=== PATIENT | female | born 1990 | race American Indian/Alaskan Native ===

== ENCOUNTER 2020-04-29 22:18 | Emergency (ER) | payer MEDICAID ==
[2020-04-29 23:31] VITALS: BP 116/76
--- NOTE | 2020-04-30 00:56 | XRay Report ---
CHEST PA AND LATERAL VIEWS INDICATION: chestpain. COMPARISON: None. FINDINGS: Support devices: None. Heart: Within normal limits. Lungs/Pleura: No acute pulmonary or pleural findings. IMPRESSION: 1. No acute findings. Signer Name: Andrew Jama MD Signed: 04/30/2020 12:52 AM Workstation Name: [id number]
--- NOTE | 2020-04-30 02:54 | Emergency Department Report ---
ED General Adult HPI - General Chief complaint: Chest Pain Stated complaint: CHEST PAIN,COUGH,FATIQUE Time Seen by Provider: 04/30/20 02:39 Source: patient Mode of arrival: Ambulatory Limitations: No Limitations - History of Present Illness Initial comments: The patient was evaluated in the emergency department for symptoms described in the history of present illness. He/she was evaluated in the context of the global COVID-19 pandemic, which necessitated consideration that the patient might be at risk for infection with the virus that causes COVID-19. Institutional protocols and algorithms that pertain to the evaluation of patients at risk for COVID-19 are in a state of rapid change based on information released by regulatory bodies including the CDC and federal and state organizations. These policies and algorithms were followed during the patient's care in the emergency department. Please note that these policies, procedures and recommendations changed on a rapid basis. 29-year-old -[place] female presents to the emergency room for intermittent chest pain and cough for 2 days. Patient also complains of nasal congestion runny nose fatigue. 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 Patient has not taken anything for her discomfort. Patient denies any recent travels, denies any control use and denies any cancers. Patient has taken nothing for her cough or nasal congestion. Patient denies any past medical history. Patient denies any fever or chills no nausea no vomiting no shortness of breath. Last menstrual period was 04/15/2020. Onset/Timin -: days(s) Location: chest Severity scale (0 -10): 8 Quality: sharp Consistency: intermittent Worsens with: movement Associated Symptoms: chest pain, cough. denies: diaphoresis, fever/chills, headaches, loss of appetite, malaise, nausea/vomiting, shortness of breath, weakness Treatments Prior to Arrival: none - Related Data Previous Rx's Medication Instructions Recorded Last Taken Type Benzonatate [Tessalon Perles] 100 mg PO Q8HR #15 capsule 04/30/20 Unknown Rx Ibuprofen [Motrin 600 MG tab] 600 mg PO Q8H PRN #21 tablet 04/30/20 Unknown Rx Allergies Allergy/AdvReac Type Severity Reaction Status Date / Time No Known Allergies Allergy Unverified 04/29/20 23:36 ED Review of Systems ROS: Stated complaint: CHEST PAIN,COUGH,FATIQUE Other details as noted in HPI Comment: All other systems reviewed and negative ED Past Medical Hx - Past Medical History Previous Medical History?: No - Surgical History Past Surgical History?: No - Social History Smoking Status: Current Every Day Smoker Substance Use Type: None - Medications Home Medications: Home Medications Medication Instructions Recorded Confirmed Last Taken Type Benzonatate [Tessalon Perles] 100 mg PO Q8HR #15 capsule 04/30/20 Unknown Rx Ibuprofen [Motrin 600 MG tab] 600 mg PO Q8H PRN #21 tablet 04/30/20 Unknown Rx ED Physical Exam - General Limitations: No Limitations General appearance: alert, in no apparent distress - Head Head exam: Present: atraumatic, normocephalic - Eye Eye exam: Present: normal appearance - ENT ENT exam: Present: normal exam, mucous membranes moist - Neck Neck exam: Present: normal inspection - Respiratory Respiratory exam: Present: normal lung sounds bilaterally. Absent: respiratory distress, chest wall tenderness, accessory muscle use - Cardiovascular Cardiovascular Exam: Present: regular rate, normal rhythm. Absent: systolic murmur, diastolic murmur, rubs, gallop - GI/Abdominal GI/Abdominal exam: Present: soft, normal bowel sounds - Extremities Exam Extremities exam: Present: normal inspection - Back Exam Back exam: Present: normal inspection - Neurological Exam Neurological exam: Present: alert, oriented X3 - Psychiatric Psychiatric exam: Present: normal affect, normal mood - Skin Skin exam: Present: warm, dry, intact, normal color. Absent: rash ED Course Vital Signs 04/29/20 23:11 Temperature 98.9 F Pulse Rate 103 H Respiratory 18 Rate Blood Pressure 116/76 O2 Sat by Pulse 99 Oximetry ED Medical Decision Making - Radiology Data Radiology results: report reviewed Referring Physician:ED DOCPatient Name:CARLOS ONOFREPatient ID:[id number] of :[id number]:FemaleAccession:[id number] Addy e:[id number] Status:Finalized Findings [facility] [address] [place] [address] XRay Report Signed Patient: CARLOS ONOFRE MR#: [id number] : 1990 Acct:[id number] Age/Sex: 29 / F ADM Date: 04/29/20 Loc: ED Attending Dr: Ordering Physician: ED DOC, MD Date of Service: 04/29/20 Procedure(s): XR chest routine 2V Accession Number(s): [id number] cc: ALFA VILLEDA MD Fluoro Time In Minutes: CHEST PA AND LATERAL VIEWS INDICATION: chestpain. COMPARISON: None. FINDINGS: Support devices: None. Heart: Within normal limits. Lungs/Pleura: No acute pulmonary or pleural findings. IMPRESSION: 1. No acute findings. Signer Name: Andrew Jama MD Signed: 04/30/2020 12:52 AM Workstation Name: [id number] - Medical Decision Making 29-year-old -[place] female presents to the emergency room for intermittent chest pain and cough for 2 days. Patient also complains of nasal congestion runny nose fatigue. 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 Patient has not taken anything for her discomfort. Patient denies any recent travels, denies any control use and denies any cancers. Patient has taken nothing for her cough or nasal congestion. Patient denies any past medical history. Patient denies any fever or chills no nausea no vomiting no shortness of breath. Last menstrual period was 04/15/2020. Chest x-ray is negative. Patient pulse ox at 99% heart rate is 95. Discussed with patient she can try taking rtcw-jex-yhgnedx Zyrtec's ibuprofen follow-up with her primary care provider if no improvement to return back to the emergency room for any worsening issues. Critical care attestation.: If time is entered above; I have spent that time in minutes in the direct care of this critically ill patient, excluding procedure time. ED Disposition Clinical Impression: Atypical chest pain, Cough Disposition: DC-01 TO HOME OR SELFCARE Is pt being admited?: No Does the pt Need Aspirin: No Condition: Stable Instructions: Chest Pain (ED), Nonspecific Chest Pain, Adult, Cough, Adult, [id number] Additional Instructions: Your symptoms appear most consistent with a nonspecific viral syndrome. However, given this current pandemic, COVID-19 is in the differential of possibilities. Despite your previous negative COVID-19 test, I do recommend repeat outpatient Covid 19 testing. In the meantime, isolate/quarantine yourself and stay away from anyone who is elderly, immunocompromised or chronically ill. You can use ibuprofen every 6-8 hours and Tylenol every 4-8 hours, using the dosing on the back of the bottle, as needed for any fever or body aches. Return to the emergency department with any worsening of your symptoms, development of chest pain or shortness of breath, or with any acute distress. Try taking aipm-euv-conduwl Zyrtec's. Take the Tessalon Perles for cough. Ibuprofen and to follow-up with your primary care provider if his symptoms persist. Symptoms worsen return back to the emergency room for reevaluation. Prescriptions: Ibuprofen [Motrin 600 MG tab] 600 mg PO Q8H PRN #21 tablet PRN Reason: Pain Benzonatate [Tessalon Perles] 100 mg PO Q8HR #15 capsule Referrals: PRIMARY CARE, [Primary Care Provider] - 3-5 Days WILMER CORTÉS MD [Staff Physician] - 3-5 Days AVERY JOSEPH FNP [Referring] - 3-5 Days Forms: Work/School Release Form(ED)
== END 2020-04-30 04:00 | disposition home or self-care (01) ==
LOC: ED 22:18
DX: R07.89 Other chest pain (principal); R05 Cough; R09.81 Nasal congestion; F17.200 Nicotine dependence, unspecified, uncomplicated; Z79.1 Long term (current) use of non-steroidal anti-inflammatories (NSAID); Z79.899 Other long term (current) drug therapy
CPT/HCPCS: 71046; 93005

== ENCOUNTER 2020-12-31 02:38 | Emergency (ER) | payer SELFPAY | END 2020-12-31 05:15 | disposition left against medical advice (07) | LOC: ED 02:38 | DX: H57.12 Ocular pain, left eye (principal); Z53.21 Procedure and treatment not carried out due to patient leaving prior to being seen by health care provider ==

== ENCOUNTER 2021-07-07 07:47 | Emergency (ER) | payer MEDICAID ==
[2021-07-07] MEDS ORDERED: SODIUM CHLORIDE 0.9% 1000 ML 1,000 ML IV ONE (08:24)
--- NOTE | 2021-07-07 08:28 | Emergency Department Report ---
ED Chest Pain HPI - General Chief Complaint: Chest Pain Stated Complaint: CHEST PAIN Time Seen by Provider: 07/07/21 08:13 Source: patient Mode of arrival: Ambulatory Limitations: No Limitations - History of Present Illness Initial Comments: 31-year-old -[place] female presents to the emergency department from home with a complaint of midsternal chest pain with radiation to the left shoulder, palpitations that feel like her heart is racing, and some intermittent shortness of breath. This began last night around 11 PM while the patient was t rying to sleep. Symptoms appear worse when she is laying flat. No past medical history. She is a tobacco smoker but denies any illicit drug use or alcohol abuse. No family history of early heart attack. No recent travel or sick contacts at home. She has not taken anything for her symptoms prior to presentation today. Severity scale (0 -10): 10 - Related Data Previous Rx's Medication Instructions Recorded Last Taken Type Benzonatate [Tessalon Perles] 100 mg PO Q8HR #15 capsule 04/30/20 Unknown Rx Ibuprofen [Motrin 600 MG tab] 600 mg PO Q8H PRN #21 tablet 04/30/20 Unknown Rx Allergies Allergy/AdvReac Type Severity Reaction Status Date / Time No Known Allergies Allergy Unverified 04/29/20 23:36 Heart Score - HEART Score History: Slightly suspicious EKG: Normal Age: < 45 Risk factors: 1-2 risk factors Troponin: < normal limit HEART Score: 1 - EKG Read Time Time EKG Completed: 07:58 EKG Read Time: 08:02 ED Review of Systems ROS: Stated complaint: CHEST PAIN Other details as noted in HPI Comment: All other systems reviewed and negative Constitutional: denies: chills, fever Eyes: denies: eye pain, vision change ENT: denies: ear pain, throat pain Respiratory: shortness of breath. denies: cough Cardiovascular: chest pain, palpitations. denies: edema Gastrointestinal: denies: abdominal pain, vomiting Genitourinary: denies: dysuria, discharge Musculoskeletal: denies: back pain, arthralgia Skin: denies: rash, lesions Neurological: denies: headache, weakness ED Past Medical Hx - Past Medical History Previous Medical History?: No - Surgical History Past Surgical History?: No - Social History Smoking Status: Current Every Day Smoker Substance Use Type: Alcohol, Marijuana - Medications Home Medications: Home Medications Medication Instructions Recorded Confirmed Last Taken Type Benzonatate [Tessalon Perles] 100 mg PO Q8HR #15 capsule 04/30/20 Unknown Rx Ibuprofen [Motrin 600 MG tab] 600 mg PO Q8H PRN #21 tablet 04/30/20 Unknown Rx ED Physical Exam - General Limitations: No Limitations - Other Other exam information: GENERAL: The patient is well-developed well-nourished. HENT: Normocephalic. Atraumatic. Patient has moist mucous membranes. EYES: Extraocular motions are intact. NECK: Supple. Trachea is midline. CHEST/LUNGS: Clear to auscultation. No tachypnea or accessory muscle use. HEART/CARDIOVASCULAR: Regular. There is mild to moderate tachycardia. There is no murmur. ABDOMEN: Abdomen is soft, nontender. Patient has normal bowel sounds. There is no abdominal distention. SKIN: Skin is warm and dry. NEURO: The patient is awake, alert, and oriented. The patient is cooperative. The patient has no focal neurologic deficits. Normal speech. MUSCULOSKELETAL: There is no tenderness or deformity. There is no limitation range of motion. ED Course Vital Signs 07/07/21 07/07/21 07/07/21 08:06 09:18 09:19 Temperature 99 F Pulse Rate 123 H 110 H Respiratory 22 14 Rate Blood Pressure 150/88 Blood Pressure 150/88 134/85 [Right] O2 Sat by Pulse 100 100 100 Oximetry 07/07/21 07/07/21 07/07/21 09:21 09:35 09:45 Temperature Pulse Rate 113 H 108 H 111 H Respiratory 9 L 8 L 12 Rate Blood Pressure 134/85 132/87 132/87 Blood Pressure [Right] O2 Sat by Pulse 100 98 98 Oximetry 07/07/21 07/07/21 07/07/21 10:01 10:15 10:31 Temperature Pulse Rate 112 H 105 H 106 H Respiratory 14 11 L 14 Rate Blood Pressure 132/86 132/86 132/86 Blood Pressure [Right] O2 Sat by Pulse 99 100 Oximetry 07/07/21 07/07/21 07/07/21 10:45 11:01 11:15 Temperature Pulse Rate 105 H 88 84 Respiratory 11 L 14 14 Rate Blood Pressure 132/86 116/77 116/77 Blood Pressure [Right] O2 Sat by Pulse 99 96 97 Oximetry 07/07/21 07/07/21 07/07/21 11:31 11:45 12:01 Temperature Pulse Rate 84 84 79 Respiratory 15 15 11 L Rate Blood Pressure 116/77 116/77 116/77 Blood Pressure [Right] O2 Sat by Pulse 97 99 98 Oximetry 07/07/21 07/07/21 07/07/21 12:15 12:31 12:44 Temperature Pulse Rate 95 H 81 97 H Respiratory 12 15 15 Rate Blood Pressure 116/77 116/77 Blood Pressure 110/81 [Right] O2 Sat by Pulse 97 97 98 Oximetry GABO score - Gabo Score Age > 65: (0) No Aspirin use within the Past 7 Days: (0) No 3 or more CAD Risk Factors: (0) No 2 or more Angina events in past 24 hrs: (0) No Known CAD with more than 50% Stenosis: (0) No Elevated Cardiac Markers: (0) No ST Deviation Greater than 0.5mm: (0) No GABO Score: 0 ED Medical Decision Making - Lab Data Result diagrams: 07/07/21 08:29 07/07/21 08:29 Lab Results 07/07/21 07/07/21 07/07/21 Range/Units 08:29 08:29 08:29 WBC 5.1 (4.5-11.0) K/mm3 RBC 3.86 (3.65-5.03) M/mm3 Hgb 12.5 (10.1-14.3) gm/dl Hct 37.2 (30.3-42.9) % MCV 96 (79-97) fl MCH 32 (28-32) pg MCHC 34 (30-34) % RDW 12.6 L (13.2-15.2) % Plt Count 263 (140-440) K/mm3 Lymph % (Auto) 14.4 (13.4-35.0) % [place] % (Auto) 6.4 (0.0-7.3) % Eos % (Auto) 0.1 (0.0-4.3) % Baso % (Auto) 0.5 (0.0-1.8) % Lymph # (Auto) 0.7 L (1.2-5.4) K/mm3 [place] # (Auto) 0.3 (0.0-0.8) K/mm3 Eos # (Auto) 0.0 (0.0-0.4) K/mm3 Baso # (Auto) 0.0 (0.0-0.1) K/mm3 Seg Neutrophils % 78.6 H (40.0-70.0) % Seg Neutrophils # 4.0 (1.8-7.7) K/mm3 D-Dimer 219.70 (0-234) ng/mlDDU Sodium 132 L (137-145) mmol/L Potassium 3.7 (3.6-5.0) mmol/L Chloride 98.6 (98-107) mmol/L Carbon Dioxide 21 L (22-30) mmol/L Anion Gap 16 mmol/L BUN 9 (7-17) mg/dL Creatinine 0.7 (0.6-1.2) mg/dL Estimated GFR > 60 ml/min BUN/Creatinine Ratio 13 % Glucose 130 H (65-100) mg/dL Calcium 9.5 (8.4-10.2) mg/dL Total Bilirubin 0.30 (0.1-1.2) mg/dL AST 21 (5-40) units/L ALT 16 (7-56) units/L Alkaline Phosphatase 65 (35-129) units/L Troponin T < 0.010 (0.00-0.029) ng/mL Total Protein 7.9 (6.3-8.2) g/dL Albumin 4.7 (3.9-5) g/dL Albumin/Globulin Ratio 1.5 % HCG, Qual (Negative) 07/07/21 07/07/21 Range/Units 08:29 11:06 WBC (4.5-11.0) K/mm3 RBC (3.65-5.03) M/mm3 Hgb (10.1-14.3) gm/dl Hct (30.3-42.9) % MCV (79-97) fl MCH (28-32) pg MCHC (30-34) % RDW (13.2-15.2) % Plt Count (140-440) K/mm3 Lymph % (Auto) (13.4-35.0) % [place] % (Auto) (0.0-7.3) % Eos % (Auto) (0.0-4.3) % Baso % (Auto) (0.0-1.8) % Lymph # (Auto) (1.2-5.4) K/mm3 [place] # (Auto) (0.0-0.8) K/mm3 Eos # (Auto) (0.0-0.4) K/mm3 Baso # (Auto) (0.0-0.1) K/mm3 Seg Neutrophils % (40.0-70.0) % Seg Neutrophils # (1.8-7.7) K/mm3 D-Dimer (0-234) ng/mlDDU Sodium (137-145) mmol/L Potassium (3.6-5.0) mmol/L Chloride (98-107) mmol/L Carbon Dioxide (22-30) mmol/L Anion Gap mmol/L BUN (7-17) mg/dL Creatinine (0.6-1.2) mg/dL Estimated GFR ml/min BUN/Creatinine Ratio % Glucose (65-100) mg/dL Calcium (8.4-10.2) mg/dL Total Bilirubin (0.1-1.2) mg/dL AST (5-40) units/L ALT (7-56) units/L Alkaline Phosphatase (35-129) units/L Troponin T < 0.010 (0.00-0.029) ng/mL Total Protein (6.3-8.2) g/dL Albumin (3.9-5) g/dL Albumin/Globulin Ratio % HCG, Qual Negative (Negative) - EKG Data -: EKG Interpreted by Wy EKG shows normal: sinus rhythm, axis, intervals, QRS complexes (Septal Q waves), ST-T waves Rate: tachycardia (125 bpm) - EKG Data When compared to previous EKG there are: no significant change Interpretation: unchanged when compared t (04/29/20) - Radiology Data Radiology results: image reviewed interpreted by me: Chest x-ray does not show any acute process. There are no pleural effusions, obvious pneumonia and there is no pneumothorax. No widened mediastinum. - Medical Decision Making This patient presents to the emergency department with a complaint of some chest pain with radiation to the left arm and intermittent shortness of breath that started last night. EKG does not show any morphology consistent with ST elevation NC and is unchanged from previous. Chest x-ray does not show any pneumonia, pleural effusions, pneumothorax, widened mediastinum, or any other acute process. The patient's labs have been unremarkable including CBC, metabolic panel, n egative D-dimer, negative troponins x2. During one of my reevaluation's, the patient admitted that she used cocaine last night and does so intermittently. Her vital signs have been reassuring other than some tachycardia that has since resolved with IV fluid resuscitation. She has been reevaluated multiple times over multiple hours, is greatly improved, and appears safe for discharge home at this time. She is low on the heart and GABO score. Her contact information has been sent over to the [place] [facility], and someone from their office should be contacting her shortly for close outpatient follow-up as part of our [facility] low as chest pain protocol. Critical Care Time: No Critical care attestation.: If time is entered above; I have spent that time in minutes in the direct care of this critically ill patient, excluding procedure time. ED Disposition Clinical Impression: Atypical chest pain Disposition: 01 HOME / SELF CARE / HOMELESS Is pt being admited?: No Condition: Stable Instructions: Nonspecific Chest Pain, Adult Additional Instructions: Please avoid any further cocaine or any other illicit drug use. Please try to avoid any excessive amount of caffeine. Make sure you stay hydrated. Follow-up with a primary care physician in the next few days. I am sending your contact information over to the [place], and someone from their office should be contacting you shortly for close outpatient follow-up. Just in case, I am giving you a referral for one of their hand spring repairer helper, Dr. Keenan. Return to the emergency department with any worsening of your symptoms, new or concerning symptoms not addressed during this current emergency department visit, or with any acute distress. Referrals: SHAYAN CORTEZ MD [Primary Care Provider] - 3-5 Days AMERICO KEENAN MD [Staff Physician] - 3-5 Days Time of Disposition: 12:14
[2021-07-07 09:04] LABS: Basophils % (Auto) 0.5 % (0.0-1.8); Eosinophils % (Auto) 0.1 % (0.0-4.3); Hematocrit 37.2 % (30.3-42.9); Hemoglobin 12.5 gm/dl (10.1-14.3); Lymphocytes # (Auto) 0.7 K/mm3 (1.2-5.4); Lymphocytes % (Auto) 14.4 % (13.4-35.0); Mean Corpuscular HGB Conc 34 % (30-34); Mean Corpuscular Volume 96 fl (79-97); Monocytes # (Auto) 0.3 K/mm3 (0.0-0.8); Monocytes % (Auto) 6.4 % (0.0-7.3); Platelet Count 263 K/mm3 (140-440); Red Blood Count 3.86 M/mm3 (3.65-5.03); Red Cell Distribution Width 12.6 % (13.2-15.2)
[2021-07-07 09:12] LABS: Alanine Aminotransferase 16 units/L (7-56); Albumin 4.7 g/dL (3.9-5); Blood Urea Nitrogen 9 mg/dL (7-17); Calcium 9.5 mg/dL (8.4-10.2); Hemolysis Index 9
[2021-07-07 09:14] LABS: BUN/Creatinine Ratio 13
[2021-07-07] MEDS ORDERED: KETOROLAC 30 MG/1 ML INJ IV ONE (09:19)
--- NOTE | 2021-07-07 09:48 | XRay Report ---
CHEST 1 VIEW INDICATION / CLINICAL INFORMATION: JAYCEE MARIN STUDY TIME: 911 COMPARISON: 04/30/2020 FINDINGS: SUPPORT DEVICES: None HEART / MEDIASTINUM: No significant abnormality. LUNGS / PLEURA: No significant acute pulmonary or pleural abnormality. No pneumothorax. ADDITIONAL FINDINGS: No significant additional findings. IMPRESSION: No significant acute abnormality Signer Name: Eder Escobar MD Signed: 07/07/2021 9:43 AM Workstation Name: [email or web address]
--- NOTE | 2021-07-07 11:46 | Electrocardiograph Report ---
[facility] Test Date: 2021-07-07 Test Time: 07:58:11 Pat Name: CARLOS ONOFRE Department: Room: Gender: F Baker Second: GIOVANA : 1990 Requested By: ABILIO BISHOP Order Number: [id number] Reading MD: Tr Martinez Measurements Intervals [place] Rate: 125 P: 59 SD: 143 QRS: 13 QRSD: 92 T: 45 QT: 320 QTc: 462 Interpretive Statements Sinus tachycardia Probable left atrial enlargement No previous ECG available for comparison Electronically Signed On 07-07-2021 11:45:54 EST by Tr Martinez
[2021-07-07 12:45] VITALS: BP 110/81
== END 2021-07-07 12:45 | disposition home or self-care (01) ==
LOC: ED 07:47
DX: R07.89 Other chest pain (principal); F17.200 Nicotine dependence, unspecified, uncomplicated; F12.90 Cannabis use, unspecified, uncomplicated
CPT/HCPCS: 36415; 71045; 80053; 84484; 84703; 85025; 85379; 93005; 93010; 96361; 96374; 99284; J1885; J7030; Q0162

== ENCOUNTER 2021-10-30 20:28 | Emergency (ER) | payer MEDICAID ==
--- NOTE | 2021-10-30 23:08 | XRay Report ---
CHEST 1 VIEW INDICATION / CLINICAL INFORMATION: chest pain STUDY TIME: 2254 COMPARISON: 07/07/2021 FINDINGS: SUPPORT DEVICES: None HEART / MEDIASTINUM: No significant abnormality. LUNGS / PLEURA: No significant acute pulmonary or pleural abnormality. No pneumothorax. ADDITIONAL FINDINGS: No significant additional findings. Signer Name: Eder Escobar MD Signed: 10/30/2021 11:04 PM Workstation Name: [email or web address]
[2021-10-31] MEDS ORDERED: ASPIRIN 325 MG TAB PO ONE (02:47)
[2021-10-31 03:22] LABS: Basophils % (Auto) 0.4 % (0.0-1.8); Eosinophils # (Auto) 0.1 K/mm3 (0.0-0.4); Eosinophils % (Auto) 1.5 % (0.0-4.3); Hematocrit 37.1 % (30.3-42.9); Hemoglobin 12.3 gm/dl (10.1-14.3); Lymphocytes # (Auto) 2.1 K/mm3 (1.2-5.4); Lymphocytes % (Auto) 41.4 % (13.4-35.0); Mean Corpuscular HGB Conc 33 % (30-34); Mean Corpuscular Volume 99 fl (79-97); Monocytes # (Auto) 0.3 K/mm3 (0.0-0.8); Platelet Count 225 K/mm3 (140-440); Red Blood Count 3.75 M/mm3 (3.65-5.03); Red Cell Distribution Width 12.8 % (13.2-15.2)
[2021-10-31 03:43] LABS: Alanine Aminotransferase 13 units/L (7-56); Albumin 4.2 g/dL (3.9-5); BUN/Creatinine Ratio 12; Blood Urea Nitrogen 7 mg/dL (7-17); Calcium 9.1 mg/dL (8.4-10.2); Hemolysis Index 4
--- NOTE | 2021-10-31 04:31 | Emergency Department Report ---
ED Chest Pain HPI - General Chief Complaint: Chest Pain Stated Complaint: CHEST DISCOMFORT Source: patient Mode of arrival: Ambulatory Limitations: No Limitations - History of Present Illness Initial Comments: Patient is a 31-year-old -[place] female with no past medical history who presents to the ED with complaint of acute onset persistent left sided chest pain and pressure that radiates to the left arm for the last 2 days. Patient states that the symptoms have been persistent since the onset. Patient denies dizziness, syncope, palpitations, nausea and vomiting, abdominal pain, neck pain, back pain, numbness and tingling or weakness of upper and lower extremit ies bilaterally, fever, chills, diaphoresis or cough, traumatic injury, heavy lifting or nasal and sinus congestion. MD Complaint: chest pain (left-sided), other (Tenderness of breath) -: days(s) (2) Onset: awoke with symptoms Pain Location: left chest Pain Radiation: LUE Severity: moderate Severity scale (0 -10): 6 Quality: aching, sharp Consistency: constant Improves With: nothing Worsens With: palpation, movement re: denies: nausea, vomting, diaphoresis, dyspnea, sense of impending doom Other Symptoms: denies: cough, fever, syncope, rash, acid taste in mouth, leg sw elling, palpitations, burping Treatments Prior to Arrival: none - Related Data Previous Rx's Medication Instructions Recorded Last Taken Type Benzonatate [Tessalon Perles] 100 mg PO Q8HR #15 capsule 04/30/20 Unknown Rx Ibuprofen [Motrin 600 MG tab] 600 mg PO Q8H PRN #30 tablet 10/31/21 Unknown Rx Allergies Allergy/AdvReac Type Severity Reaction Status Date / Time No Known Allergies Allergy Verified 10/30/21 22:40 Heart Score - HEART Score History: Slightly suspicious EKG: Normal Age: < 45 Risk factors: No known risk factors Troponin: < normal limit HEART Score: 0 - EKG Read Time Time EKG Completed: 22:33 EKG Read Time: 22:40 - Critical Actions Critical Actions: 0-3 pts:0.9-1.7%risk of adverse cardiac event.Candidate for discharge ED Review of Systems ROS: Stated complaint: CHEST DISCOMFORT Other details as noted in HPI Constitutional: denies: chills, fever Eyes: denies: eye pain, eye discharge, vision change ENT: denies: ear pain, throat pain, congestion Respiratory: denies: cough, orthopnea, shortness of breath, wheezing Cardiovascular: chest pain (Left-sided). denies: palpitations Endocrine: no symptoms reported Gastrointestinal: denies: abdominal pain, nausea, vomiting, diarrhea Genitourinary: denies: urgency, dysuria, discharge Musculoskeletal: denies: back pain, joint swelling, arthralgia Skin: denies: rash, lesions Neurological: denies: headache, weakness, paresthesias Psychiatric: denies: anxiety, depression Hematological/Lymphatic: denies: easy bleeding, easy bruising ED Past Medical Hx - Past Medical History Previous Medical History?: No - Surgical History Past Surgical History?: No - Social History Smoking Status: Never Smoker Substance Use Type: None - Medications Home Medications: Home Medications Medication Instructions Recorded Confirmed Last Taken Type Benzonatate [Tessalon Perles] 100 mg PO Q8HR #15 capsule 04/30/20 Unknown Rx Ibuprofen [Motrin 600 MG tab] 600 mg PO Q8H PRN #30 tablet 10/31/21 Unknown Rx ED Physical Exam - General Limitations: No Limitations General appearance: alert, in no apparent distress - Head Head exam: Present: atraumatic, normocephalic, normal inspection - Eye Eye exam: Present: normal appearance, PERRL, EOMI Pupils: Present: normal accommodation - ENT ENT exam: Present: normal exam, normal orophraynx, mucous membranes moist, TM's normal bilaterally, normal external ear exam - Neck Neck exam: Present: normal inspection, full ROM. Absent: tenderness - Respiratory Respiratory exam: Present: normal lung sounds bilaterally, chest wall tenderness (Palpable reproducible left-sided chest wall tenderness). Absent: respiratory distress, wheezes, rhonchi, accessory muscle use, decreased breath sounds, pro longed expiratory - Cardiovascular Cardiovascular Exam: Present: regular rate, normal rhythm, normal heart sounds. Absent: systolic murmur, diastolic murmur, rubs, gallop - GI/Abdominal GI/Abdominal exam: Present: soft, normal bowel sounds. Absent: tenderness, guarding, rebound, hyperactive bowel sounds, hypoactive bowel sounds, organomegaly - Extremities Exam Extremities exam: Present: normal inspection, full ROM, normal capillary refill. Absent: tenderness - Back Exam Back exam: Present: normal inspection, full ROM. Absent: tenderness, CVA tenderness (R), CVA tenderness (L), muscle spasm - Neurological Exam Neurological exam: Present: alert, oriented X3, CN II-XII intact, normal gait, reflexes normal - Psychiatric Psychiatric exam: Present: normal affect, normal mood, anxious - Skin Skin exam: Present: warm, dry, intact, normal color. Absent: rash ED Course Vital Signs 10/30/21 22:32 Temperature 98.2 F Pulse Rate 71 Respiratory 18 Rate Blood Pressure 131/82 O2 Sat by Pulse 99 Oximetry MOOSE score - Moose Score Age > 65: (0) No Aspirin use within the Past 7 Days: (0) No 3 or more CAD Risk Factors: (0) No 2 or more Angina events in past 24 hrs: (0) No Known CAD with more than 50% Stenosis: (0) No Elevated Cardiac Markers: (0) No ST Deviation Greater than 0.5mm: (0) No MOOSE Score: 0 ED Medical Decision Making - Lab Data Result diagrams: 10/31/21 03:08 10/31/21 03:08 - EKG Data EKG shows normal: sinus rhythm Rate: normal - EKG Data Interpretation: normal EKG 10/31/21 04:31 EKG shows normal sinus rhythm with a ventricular rate of [address] elevation which is probably normal early repolarization, otherwise no pathological Q waves. - Radiology Data Radiology results: report reviewed, image reviewed [address] [address] XRay Report Signed Patient: CARLOS ONOFRE MR#: [id number] : 1990 Acct:[id number] Age/Sex: 31 / F ADM Date: 10/30/21 Loc: ED Attending Dr: Ordering Physician: ALFA VILLEDA MD Date of Service: 10/30/21 Procedure(s): XR chest 1V ap Accession Number(s): [id number] cc: ED MD RONAL Fluoro Time In Minutes: CHEST 1 VIEW INDICATION / CLINICAL INFORMATION: chest pain STUDY TIME: 5 COMPARISON: 07/07/2021 FINDINGS: SUPPORT DEVICES: None HEART / MEDIASTINUM: No significant abnormality. LUNGS / PLEURA: No significant acute pulmonary or pleural abnormality. No pneumothorax. ADDITIONAL FINDINGS: No significant additional findings. Signer Name: Eder Escobar MD Signed: 10/30/2021 11:04 PM Workstation Name: [id number] Transcribed By: GJ Dictated By: Eder Escobar MD Electronically Authenticated By: Eder Escobar MD Signed Date/Time: 10/30/212303 DD/ 02 TD/TT: - Medical Decision Making This is a 31-year-old -[place] female with no past medical history who presents to the ED with complaint of acute onset persistent left sided chest pain and pressure that radiates to the left arm for the last 2 days. Patient states that the symptoms have been persistent since the onset. In the ED, patient is alert and oriented x3 and is not in any distress. EKG shows normal sinus rhythm with a ventricular rate of [address] or T wave normalities. Chest x-ray showed no acute cardiopulmonary abnormalities or pneumonitis. All lab test results were reviewed and are all nonactionable including troponin levels. Patient's heart score is 0, and patient is PERC negative per Wells criteria. Patient was discharged home and advised to follow-up with her primary care physician in 5 to 7 days for reevaluation or return to the ED immediately if symptoms get worse. Patient symptoms are likely due to acute costochondritis or muscle strain of chest wall. Patient was discharged home and advised to return to the ED immediately if symptoms get worse. - Differential Diagnosis Costochondritis; ACS; PE; pneumonia; muscle strain; anxiety; Critical care attestation.: If time is entered above; I have spent that time in minutes in the direct care of this critically ill patient, excluding procedure time. ED Disposition Clinical Impression: Acute nonspecific chest pain with low risk of coronary artery disease, Acute costochondritis, Anxiety as acute reaction to exceptional stress Disposition: 01 HOME / SELF CARE / HOMELESS Is pt being admited?: No Does the pt Need Aspirin: No Condition: Stable Instructions: Chest Pain (ED), Costochondritis, [id number], Nonspecific Chest Pain, Adult, [id number], Chest Wall Pain, [id number], Generalized Anxiety Disorder, Adult Additional Instructions: All lab test results were reviewed and are all nonactionable. Chest x-ray showed no acute cardiopulmonary abnormalities or pneumonitis. EKG shows normal sinus rhythm with a ventricular rate of [address] or T wave abnormalities. Your symptoms are likely due to muscle strain or costochondritis of the chest wall. Your risk factor for heart disease is 0. Therefore take medication with food, drink plenty of fluids and follow-up with your primary care physician in 5 to 7 days for reevaluation or return to the ED immediately if symptoms get worse. Prescriptions: Ibuprofen [Motrin 600 MG tab] 600 mg PO Q8H PRN #30 tablet PRN Reason: Pain Referrals: [facility] [Provider Group] - 3-5 Days Forms: Work/School Release Form(ED) Time of Disposition: 04:35 Print Language: PASHTO
[2021-10-31 05:11] VITALS: BP 127/79
--- NOTE | 2021-10-31 12:14 | Electrocardiograph Report ---
[facility] Test Date: 2021-10-30 Test Time: 22:33:48 Pat Name: ACRLOS ONOFRE Department: Room: Gender: F [employer]: DAVIS : 1990 Requested By: JULIO PORTER Order Number: [id number] Reading MD: Carlos Farley Measurements Intervals Bim Rate: 68 P: 39 [place]: 119 QRS: 40 QRSD: 96 T: 48 QT: 377 QTc: 401 Interpretive Statements Sinus rhythm ST elev, probable normal early repol pattern Compared to ECG 07/07/2021 07:58:11 ST (T wave) deviation now present Sinus tachycardia no longer present Electronically Signed On 10-31-2021 12:14:11 EDT by Carlos Farley
== END 2021-10-31 05:11 | disposition home or self-care (01) ==
LOC: ED 20:28
DX: R07.89 Other chest pain (principal); M94.0 Chondrocostal junction syndrome [Tietze]; F41.1 Generalized anxiety disorder; F43.0 Acute stress reaction
CPT/HCPCS: 36415; 71045; 80053; 84484; 85025; 93005; 99284